=== PATIENT | female | born 1990 | race American Indian/Alaskan Native ===

== ENCOUNTER 2017-11-20 12:50 | Emergency (ER) | payer OTHER ==
[2017-11-20 12:54] VITALS: BMI 28.8
[2017-11-20 12:58] VITALS: BP 106/73; PULSE 89; RESP 18; TEMP 97.8; O2SAT 98
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
== END 2017-11-20 14:06 | disposition home or self-care (01) ==
LOC: ED 12:50
DX: S39.012A Strain of muscle, fascia and tendon of lower back, initial encounter (principal); V49.9XXA Car occupant (driver) (passenger) injured in unspecified traffic accident, initial encounter
CPT/HCPCS: 96372; 99284; J1885